=== PATIENT | female | born 1995 | race Asian ===

== ENCOUNTER 2020-12-21 09:06 | Emergency (ER) | payer OTHER ==
[2020-12-21 09:48] VITALS: BMI 18.6
[2020-12-21 10:28] LABS: BASO % 0.1 % (0-2.0); EOS % 0.1 % (0-4.5); HEMATOCRIT 34.3 % (32.4-45.2); HEMOGLOBIN 10.8 GM/dL (10.7-15.3); LYMPH % 9.1 % (8-40); MCH 19.8 pg (25.7-33.7); MCHC 31.7 g/dl (32.0-36.0); MEAN CELL VOLUME 62.4 fl (80-96); MEAN PLT VOLUME 9.5 fl (7.5-11.1); MONO % 2.4 % (3.8-10.2); NEUT % 88.3 % (42.8-82.8); PLATELET COUNT 229 K/MM3 (134-434); RBC 5.49 M/mm3 (3.60-5.2); RDW 15.5 % (11.6-15.6)
[2020-12-21 10:39] LABS: EPI CELLS 6 /uL (0-25.1); HYALINE CASTS 1 /uL (0-3.1); PH,URINE 5.5 (5.0-8.0); URINE APPEARANCE TURBID; URINE BACTERIA 169 /uL (0-1359); URINE BILIRUBIN NEGATIVE (NEGATIVE); URINE COLOR YELLOW; URINE GLUCOSE (UA) NEGATIVE (NEGATIVE); URINE KETONE NEGATIVE (NEGATIVE); URINE LEUK ESTERASE 3+ (NEGATIVE); URINE NITRITE NEGATIVE (NEGATIVE); URINE PROTEIN 2+ (NEGATIVE); URINE RBC 1025 /uL (0-23.9); URINE UROBILINOGEN 0.2 mg/dL (0.2-1.0); URINE WBC 8984 /uL (0-25.8)
[2020-12-21] MEDS ORDERED: CEFTRIAXONE 1 GM in DEXTROSE 5%-WATER - 50 ML IVPB ONE (11:02)
[2020-12-21] MEDS ORDERED: SODIUM CHLORIDE 1,000 ML IV STA (11:03)
[2020-12-21 11:05] LABS: CALCIUM 9.2 mg/dL (8.5-10.1)
[2020-12-21] MEDS ORDERED: CEFTRIAXONE 1 GM/50 ML BAG ONE (11:05)
[2020-12-21 11:06] LABS: ALBUMIN 4.3 g/dl (3.4-5.0); ANISOCYTOSIS 1+; BLOOD UREA NITROGEN 3.7 mg/dL (7-18); MACROCYTOSIS 0; OVALOCYTE 1+; PLATELET ESTIMATE NORMAL
[2020-12-21 11:09] LABS: CREATININE 0.5 mg/dL (0.55-1.3)
[2020-12-21 11:10] LABS: BILIRUBIN,TOTAL 0.6 mg/dL (0.2-1); TOT PROT 7.7 g/dl (6.4-8.2)
[2020-12-21] MEDS ORDERED: diphenhydrAMINE HCL 25 MG CAPSULE (FP) PO ONE ×2 (11:25)
[2020-12-21] MEDS ORDERED: ACETAMINOPHEN 325 MG TABLET (FP) ONE (12:28)
[2020-12-21] MEDS ORDERED: ACETAMINOPHEN 500 MG TABLET (FP) PO ONE (12:28)
[2020-12-21 14:35] VITALS: BP 110/69; PULSE 75; TEMP 98
== END 2020-12-21 14:35 | disposition home or self-care (01) ==
LOC: JER 09:06
PROC: 3E03329 Introduction of Other Anti-infective into Peripheral Vein, Percutaneous Approach (ICD-10-PCS; principal; 2020-12-21)
PROC: 3E0337Z Introduction of Electrolytic and Water Balance Substance into Peripheral Vein, Percutaneous Approach (ICD-10-PCS; 2020-12-21)
DX: N39.0 Urinary tract infection, site not specified (principal)
CPT/HCPCS: 36415; 76775-TC; 76817-TC; 80053; 81003; 83605; 83690; 84702; 85025; 87086; 96361; 96365; 99285-25

== ENCOUNTER 2021-07-17 19:05 | Inpatient (IN) | payer OTHER ==
[2021-07-17 20:14] LABS: RETICULOCYTES 1.08 % (0.5-1.5)
[2021-07-17] MEDS: DEXTROSE 5%-LACTATED RINGERS 1,000 ML IV SCH (20:15)
[2021-07-17 20:16] LABS: BASO % 0.2 % (0-2.0); HEMATOCRIT 29.2 % (32.4-45.2); HEMOGLOBIN 9.6 GM/dL (10.7-15.3); LYMPH % 22.2 % (8-40); MCH 21.1 pg (25.7-33.7); MCHC 32.9 g/dl (32.0-36.0); MEAN CELL VOLUME 64.2 fl (80-96); MEAN PLT VOLUME 9.2 fl (7.5-11.1); MONO % 5.8 % (3.8-10.2); NEUT % 70.8 % (42.8-82.8); PLATELET COUNT 153 10^3/uL (134-434); RBC 4.55 M/mm3 (3.60-5.2); RDW 16.2 % (11.6-15.6); WHITE BLOOD COUNT 10.4 K/mm3 (4.0-10.0)
[2021-07-17 20:21] LABS: INR 0.91 (0.83-1.09); PROTHROMBIN TIME (PATIENT) 11.1 SEC (9.7-13.0)
[2021-07-17 20:24] LABS: ACTIVATED PTT 25.4 SECONDS (25.2-36.5)
[2021-07-17 20:38] VITALS: BMI 27.3
[2021-07-17 20:39] LABS: BLOOD UREA NITROGEN 10.6 mg/dL (7-18); GAMMA GLUTAMYL TRANSPEPTIDASE 15 U/L (5-85)
[2021-07-17 20:42] LABS: CREATININE 0.3 mg/dL (0.55-1.3); URIC ACID 4.5 mg/dL (2.6-7.2)
[2021-07-17 20:43] LABS: SGOT/AST 15 U/L (15-37)
[2021-07-17 20:45] LABS: ANISOCYTOSIS 2+; MACROCYTOSIS 0; PLATELET ESTIMATE DECREASED; TARGET CELLS 1+; TEAR DROP CELLS 1+
[2021-07-17] MEDS: OXYTOCIN 30 UNITS in 0.9% NS 30 UNIT/500 ML INFUS.BAG IVPB SCH (21:00)
[2021-07-17] MEDS ORDERED: OXYTOCIN 30 UNITS in 0.9% NS 30 UNIT/500 ML INFUS.BAG IVPB ONE (21:08)
[2021-07-18] MEDS: DEXTROSE 5%-LACTATED RINGERS 1,000 ML IV SCH (06:00)
[2021-07-18 06:26] LABS: EPI CELLS 18 /uL (0-25.1); HYALINE CASTS 1 /uL (0-3.1); PH,URINE 6.5 (5.0-8.0); URINE APPEARANCE CLEAR; URINE BACTERIA 80 /uL (0-1359); URINE BILIRUBIN NEGATIVE (NEGATIVE); URINE COLOR YELLOW; URINE GLUCOSE (UA) NEGATIVE (NEGATIVE); URINE KETONE NEGATIVE (NEGATIVE); URINE LEUK ESTERASE NEGATIVE (NEGATIVE); URINE NITRITE NEGATIVE (NEGATIVE); URINE PROTEIN 1+ (NEGATIVE); URINE RBC 15 /uL (0-23.9); URINE UROBILINOGEN 0.2 mg/dL (0.2-1.0); URINE WBC 10 /uL (0-25.8)
[2021-07-18] MEDS ORDERED: BETAMET ACET/BETAMET NA PH 30 MG/5 ML VIAL IM ONE (06:37)
[2021-07-18] MEDS ORDERED: BETAMET ACET/BETAMET NA PH 30 MG/5 ML VIAL ONE (07:56)
[2021-07-18] MEDS: PANTOPRAZOLE 20 MG TABLET PO SCH (09:29)
[2021-07-18] MEDS ORDERED: ACETAMINOPHEN 325 MG TABLET (FP) ONE (22:45)
[2021-07-19] MEDS: PANTOPRAZOLE 20 MG TABLET PO SCH (08:00)
[2021-07-19] MEDS ORDERED: DINOPROSTONE 10 MG VAGINAL SUPPOSITORY VG ONE (09:30)
[2021-07-19] MEDS: OXYTOCIN 30 UNITS in 0.9% NS 30 UNIT/500 ML INFUS.BAG IVPB SCH (09:36)
[2021-07-19] MEDS ORDERED: BETAMET ACET/BETAMET NA PH 30 MG/5 ML VIAL IM ONE (11:00)
[2021-07-19] MEDS: DEXTROSE 5%-LACTATED RINGERS 1,000 ML IV SCH ×2 (11:00→20:00)
[2021-07-19] MEDS ORDERED: ACETAMINOPHEN 325 MG TABLET (FP) ONE ×2 (11:24→17:19)
[2021-07-19] MEDS: ACETAMINOPHEN 325 MG TABLET (FP) PO PRN ×2 (11:30→17:30)
[2021-07-19] MEDS ORDERED: morphine SULFATE/PF 0.5 MG/ML (2cc Syringe - QUVA) ONE (20:34)
[2021-07-19] MEDS ORDERED: CLINDAMYCIN PHOSPHATE 600 MG/4 ML VIAL ONE (20:34)
[2021-07-19] MEDS ORDERED: NITROGLYCERIN 50 MG/10 ML VIAL IVPB ONE (21:15)
[2021-07-19] MEDS ORDERED: MIDAZOLAM HCL 2 MG/2 ML SINGLE DOSE VIAL ONE (21:28)
[2021-07-19] MEDS ORDERED: OXYTOCIN 20 UNITS in 0.9% NS 20 UNIT/1,000 ML INFUS.BAG IV ONE (23:34)
[2021-07-19] MEDS ORDERED: CITRIC ACID/SODIUM CITRATE 30 ML UNIT-DOSE CUP PO ONE (23:50)
[2021-07-20] MEDS ORDERED: OXYTOCIN 20 UNITS in 0.9% NS 1000 ML INFUS.BAG IV ONE (00:38)
[2021-07-20 00:51] LABS: CORD BASE EXCESS -13.2 mmol/L (0-2); CORD HCO3 17.3 mmHg (20-29); CORD pH 7.085 (7.14-7.44)
[2021-07-20] MEDS: OXYTOCIN 30 UNITS in 0.9% NS 30 UNIT/500 ML INFUS.BAG IVPB SCH (00:52)
[2021-07-20 00:53] LABS: CORD HCO3 19.6 mmHg (20-29); CORD PCO2 47.8 mmHg (30-78); CORD pH 7.231 (7.14-7.44)
[2021-07-20 01:01] LABS: CORD BASE EXCESS -7.8 mmol/L (0-2); CORD HCO3 19.5 mmHg (20-29); CORD PCO2 46.4 mmHg (30-78); CORD pH 7.241 (7.14-7.44)
[2021-07-20 01:05] LABS: CORD BASE EXCESS -7.4 mmol/L (0-2); CORD HCO3 21.3 mmHg (20-29); CORD PCO2 55.4 mmHg (30-78); CORD pH 7.203 (7.14-7.44)
[2021-07-20] MEDS ORDERED: MORPHINE SULFATE 2 MG/ML VIAL IVPUSH PRN (01:06)
[2021-07-20] MEDS ORDERED: MORPHINE SULFATE 2 MG/ML VIAL ONE ×2 (01:15)
[2021-07-20] MEDS: PANTOPRAZOLE 20 MG TABLET PO SCH (09:13)
[2021-07-20 10:02] LABS: BASO % 0.3 % (0-2.0); HEMATOCRIT 23.6 % (32.4-45.2); HEMOGLOBIN 7.7 GM/dL (10.7-15.3); LYMPH % 15.3 % (8-40); MCH 21.2 pg (25.7-33.7); MCHC 32.5 g/dl (32.0-36.0); MEAN CELL VOLUME 65.3 fl (80-96); MEAN PLT VOLUME 9.5 fl (7.5-11.1); MONO % 5.3 % (3.8-10.2); NEUT % 79.1 % (42.8-82.8); PLATELET COUNT 119 10^3/uL (134-434); RBC 3.61 M/mm3 (3.60-5.2); RDW 16.3 % (11.6-15.6); WHITE BLOOD COUNT 17.9 K/mm3 (4.0-10.0)
[2021-07-20] MEDS: IBUPROFEN 600 MG TABLET (FP) PO PRN ×3 (10:10→22:01)
[2021-07-20] MEDS: oxyCODONE HCL 5 MG TABLET PO PRN (20:03)
[2021-07-20] MEDS ORDERED: BISACODYL 10 MG SUPP.RECT RC PRN (22:56)
[2021-07-21] MEDS: oxyCODONE HCL 5 MG TABLET PO PRN ×5 (00:14→20:17)
[2021-07-21] MEDS: PANTOPRAZOLE 20 MG TABLET PO SCH (06:32)
[2021-07-21] MEDS: IBUPROFEN 600 MG TABLET (FP) PO PRN ×2 (07:53→13:35)
[2021-07-21] MEDS: SIMETHICONE 80 MG TAB.CHEW (FP) PO PRN ×2 (13:35→20:17)
[2021-07-21] MEDS: DEXTROSE 5%-LACTATED RINGERS 1,000 ML IV SCH (20:11)
[2021-07-21] MEDS: OXYTOCIN 30 UNITS in 0.9% NS 30 UNIT/500 ML INFUS.BAG IVPB SCH (20:11)
[2021-07-22] MEDS: oxyCODONE HCL 5 MG TABLET PO PRN ×2 (00:53→03:24)
[2021-07-22] MEDS: SIMETHICONE 80 MG TAB.CHEW (FP) PO PRN ×2 (00:54→03:25)
[2021-07-22] MEDS: IBUPROFEN 600 MG TABLET (FP) PO PRN ×3 (03:23→20:33)
[2021-07-22] MEDS: PANTOPRAZOLE 20 MG TABLET PO SCH (07:37)
[2021-07-22 09:06] LABS: HEMATOCRIT 23.5 % (32.4-45.2); HEMOGLOBIN 7.6 GM/dL (10.7-15.3); MCH 21.3 pg (25.7-33.7); MCHC 32.5 g/dl (32.0-36.0); MEAN CELL VOLUME 65.6 fl (80-96); PLATELET COUNT 153 10^3/uL (134-434); RBC 3.58 M/mm3 (3.60-5.2); RDW 15.9 % (11.6-15.6); WHITE BLOOD COUNT 14.5 K/mm3 (4.0-10.0)
[2021-07-22] MEDS: ACETAMINOPHEN 325 MG TABLET (FP) PO PRN ×2 (09:43→16:06)
[2021-07-22] MEDS ORDERED: DOCUSATE SODIUM 100 MG CAPSULE (FP) PO PRN (11:32)
[2021-07-22] MEDS: FERROUS SO4 325 MG TABLET (FP) PO SCH ×2 (12:08→21:53)
[2021-07-22 12:53] LABS: ANISOCYTOSIS 1+; MACROCYTOSIS 0; OVALOCYTE 1+; PLATELET ESTIMATE DECREASED; TEAR DROP CELLS 1+
[2021-07-23] MEDS: IBUPROFEN 600 MG TABLET (FP) PO PRN ×3 (00:10→15:57)
[2021-07-23] MEDS: PANTOPRAZOLE 20 MG TABLET PO SCH (07:26)
[2021-07-23] MEDS: FERROUS SO4 325 MG TABLET (FP) PO SCH ×3 (09:12→09:24)
[2021-07-23] MEDS: SIMETHICONE 80 MG TAB.CHEW (FP) PO PRN ×2 (09:13→15:57)
[2021-07-23 09:23] VITALS: BP 135/82; PULSE 81; TEMP 97.3
== END 2021-07-23 18:09 | disposition home or self-care (01) | DRG 540 ==
LOC: JLDR 19:05 → J3W 07-20 02:16
PROVIDERS: ADMIT Obstetrics & Gynecology Maternal & Fetal Medicine; ATTEND Obstetrics & Gynecology Maternal & Fetal Medicine
PROC: 3E033VJ Introduction of Other Hormone into Peripheral Vein, Percutaneous Approach (ICD-10-PCS; 2021-07-17)
PROC: 10D00Z1 Extraction of Products of Conception, Low, Open Approach (ICD-10-PCS; principal; 2021-07-19)
PROC: 3E0P7VZ Introduction of Hormone into Female Reproductive, Via Natural or Artificial Opening (ICD-10-PCS; 2021-07-19)
DX: O14.94 Unspecified pre-eclampsia, complicating childbirth (principal); O30.033 Twin pregnancy, monochorionic/diamniotic, third trimester; O61.0 Failed medical induction of labor; O62.2 Other uterine inertia; Z37.2 Twins, both liveborn; Z3A.36 36 weeks gestation of pregnancy; Z88.1 Allergy status to other antibiotic agents
CPT/HCPCS: 36415; 36600; 80048; 81003; 82803; 82977; 83010; 84450; 84460; 84550; 85025; 85032; 85045; 85610; 85730; 86780; 86850; 86900; 86901; 96372; C9803; U0003; U0005